=== PATIENT | male | born 1980 | race Two or more races ===

== ENCOUNTER 2019-02-04 10:23 | Inpatient (IN) | payer OTHER ==
[~2019-02-04] VITALS: Ht 172.7 cm; Wt 70.5 kg
[2019-02-04] MEDS ORDERED: CYCL10 PO (10:36)
[2019-02-04] MEDS ORDERED: ALBU8HFA IH (10:36)
[2019-02-04] MEDS ORDERED: IBUP-1506 PO (10:36)
[2019-02-04] MEDS ORDERED: ACETAMINOPHEN 500 MG TABLET PO ONE (10:45)
[2019-02-04] MEDS ORDERED: ONDANSETRON HCL 4 MG/2 ML VIAL IVP PRN (11:00)
[2019-02-04] MEDS ORDERED: ACETAMINOPHEN 325 MG TABLET PO PRN (11:00)
[2019-02-04] MEDS ORDERED: MAGNESIUM HYDROXIDE SUSPENSION 30 ML UDCUP PO PRN (11:15)
[2019-02-04 11:52] LABS: BASOPHILS % (AUTO) 0.6 % (0.0-2.0); EOSINOPHILS % (AUTO) 1.9 % (1.0-6.0); HEMATOCRIT 48.6 % (41-53); LYMPHOCYTES % (AUTO) 28.9 % (22.0-44.0); MEAN CORPUSCULAR HEMOGLOBIN 32.9 pg (26.0-34.0); MEAN CORPUSCULAR HGB CONC 32.9 G/dL (31.0-37.0); MEAN CORPUSCULAR VOLUME 100 fL (80-100); MONOCYTES # (AUTO) 0.4 K/uL (0.1-1.0); NEUTROPHILS # (AUTO) 4.3 K/uL (1.8-7.7); NEUTROPHILS % (AUTO) 62.6 % (40.0-70.0); PLATELET COUNT (AUTO) 453 K/uL (150-450); RED BLOOD CELL COUNT(AUTO) 4.86 MIL/uL (4.50-5.90); RED CELL DISTRIBUTION WIDTH 13.7 % (11.5-14.5)
[2019-02-04 12:05] LABS: ANION GAP 9 mmol/L (8-16); CALCIUM, TOTAL 9.6 mg/dL (8.8-10.5); CARBON DIOXIDE 30 mmol/L (22-29); CHLORIDE 99 mmol/L (98-107); CREATININE 0.83 mg/dL (0.60-1.30); GLOMERULAR FILTR. RATE CALC > 60 mL/min (>60); GLUCOSE,RANDOM 87 mg/dL (70-110); POTASSIUM 4.3 mmol/L (3.5-5.1); SODIUM SERUM 138 mmol/L (136-145); UREA NITROGEN, BLOOD 10 mg/dL (7-18)
[2019-02-04 12:10] LABS: ALANINE AMINOTRANSFERASE 29 U/L (12-78); ALBUMIN 4.9 g/dL (3.4-5.0); ALKALINE PHOSPHATASE 94 U/L (46-116); ASPARTATE AMINOTRANSFERASE 21 U/L (15-37); BILIRUBIN,TOTAL 0.8 mg/dL (0.1-1.0); TOTAL PROTEIN, SERUM 8.7 g/dL (6.4-8.2)
[2019-02-04 12:49] VITALS: BP 113/83
[2019-02-04 13:13] VITALS: BP 113/83
[2019-02-04] MEDS: MULTIVITAMINS WITH MINERALS, THERAPEUTIC TABLET PO SCH (13:50)
[2019-02-04 15:25] VITALS: BP 93/61
[2019-02-04 20:08] VITALS: BP 98/59
[2019-02-04 23:59] VITALS: BP 103/75
[2019-02-05] MEDS: ALBUTEROL SULFATE HFA 90 MCG/PUFF 8 GM INHALER IH PRN ×2 (00:42→20:26)
[2019-02-05 04:42] VITALS: BP 93/60
[2019-02-05 07:00] VITALS: BP 92/68
[2019-02-05] MEDS: RisperiDONE 1 MG TABLET PO SCH ×2 (09:59→20:24)
[2019-02-05] MEDS: MULTIVITAMINS WITH MINERALS, THERAPEUTIC TABLET PO SCH (09:59)
[2019-02-05] MEDS: FAMOTIDINE 20 MG TABLET PO SCH (09:59)
[2019-02-05 12:02] VITALS: BP 101/53
[2019-02-05 15:54] VITALS: BP 91/62
[2019-02-05] MEDS: ACETAMINOPHEN 325 MG TABLET PO PRN (19:30)
[2019-02-05 19:40] VITALS: BP 92/58
[2019-02-06] VITALS (7 sets, daily range): BP systolic 96–114; BP diastolic 51–73
[2019-02-06] MEDS: MULTIVITAMINS WITH MINERALS, THERAPEUTIC TABLET PO SCH (08:11)
[2019-02-06] MEDS: FAMOTIDINE 20 MG TABLET PO SCH (08:11)
[2019-02-06] MEDS: RisperiDONE 1 MG TABLET PO SCH ×2 (08:11→20:08)
[2019-02-06] MEDS: ACETAMINOPHEN 325 MG TABLET PO PRN ×2 (08:35→17:11)
[2019-02-06] MEDS: ALBUTEROL SULFATE HFA 90 MCG/PUFF 8 GM INHALER IH PRN (21:50)
[2019-02-07 04:00] VITALS: BP 106/65
[2019-02-07] MEDS: ACETAMINOPHEN 325 MG TABLET PO PRN ×2 (05:48→14:44)
[2019-02-07] MEDS: RisperiDONE 1 MG TABLET PO SCH (07:53)
[2019-02-07] MEDS: FAMOTIDINE 20 MG TABLET PO SCH (07:53)
[2019-02-07] MEDS: MULTIVITAMINS WITH MINERALS, THERAPEUTIC TABLET PO SCH (07:53)
[2019-02-07 08:00] VITALS: BP 102/69
[2019-02-07 11:26] VITALS: BP 110/67
[2019-02-07] MEDS ORDERED: FAMO20 PO (12:13)
[2019-02-07] MEDS ORDERED: MULT-665 PO (12:14)
[2019-02-07] MEDS ORDERED: RISP1 PO (12:14)
[2019-02-07] MEDS ORDERED: MOM30 PO (12:15)
[2019-02-07] MEDS ORDERED: ACET-2247 PO (12:15)
[2019-02-07 15:41] VITALS: BP 116/76
[2019-02-07 19:39] VITALS: BP 115/69
== END 2019-02-07 20:20 | DRG 885 ==
LOC: EMS 10:29 → 6S 11:05
PROVIDERS: ADMIT Internal Medicine; ATTEND Internal Medicine
DX: F20.9 Schizophrenia, unspecified (principal); J45.909 Unspecified asthma, uncomplicated
CPT/HCPCS: 97116; 97530; J3535